=== PATIENT | male | born 1970 | race American Indian/Alaskan Native ===

== ENCOUNTER 2018-06-26 19:58 | Emergency (ER) | payer OTHER ==
[2018-06-26 20:13] VITALS: BP 128/73; PULSE 89; RESP 16; TEMP 98.9; O2SAT 96
[2018-06-26] MEDS ORDERED: Tdap Vaccine 0.5 ml Vial (10-64 yrs) IM ONE ×2 (21:13→22:05)
--- NOTE | 2018-06-26 21:39 | ED PDOC ---
Lower Extremity Pain/Injury Time Seen by Provider: 06/26/18 20:58 Chief Complaint (Nursing): Lower Extremity Problem/Injury Chief Complaint (Provider): Lower Extremity Problem/Injury History Per: Patient History/Exam Limitations: no limitations Onset/Duration Of Symptoms: Hrs (x1-1.5) Current Symptoms Are (Timing): Still Present Additional Complaint(s): Patient is a 47 y/o male with no significant PMHx who presents to the ED for evaluation of a right foot injury an hour to and hour and half prior to arrival. Patient was at work and stepped on a long marleny nail. The nail punctured through his shoe and the bottom of his right foot. His friend pulled the nail out. Patient reports soreness and was brought in by coworkers to avoid walking on his foot. Of note, patient's Tetanus is not up to date. PCP: None Provided Past Medical History Reviewed: Historical Data, Nursing Documentation, Vital Signs Vital Signs: Last Vital Signs Temp 98.9 F 06/26/18 20:12 Pulse 89 06/26/18 20:12 Resp 16 06/26/18 20:12 BP 128/73 06/26/18 20:12 Pulse Ox 96 06/26/18 20:12 - Medical History PMH: No Chronic Diseases - Surgical History Surgical History: No Surg Hx - Family History Family History: States: No Known Family Hx - Immunization History Hx Tetanus Toxoid Vaccination: No - Home Medications Home Medications: Ambulatory Orders Medication Instructions Recorded Ciprofloxacin 500 mg PO BID 7 Days #14 ml 06/26/18 Ibuprofen [Motrin Tab] 600 mg PO Q6 PRN #20 tab 06/26/18 - Allergies Allergies/Adverse Reactions: Allergies Allergy/AdvReac Type Severity Reaction Status Date / Time No Known Allergies Allergy Verified 06/26/18 20:15 Review of Systems ROS Statement: Except As Marked, All Systems Reviewed And Found Negative Musculoskeletal: Positive for: Foot Pain (right; soreness) Physical Exam - Reviewed Nursing Documentation Reviewed: Yes Vital Signs Reviewed: Yes - Physical Exam Comments: GENERAL APPEARANCE: Patient is awake, alert, oriented x 3, in no acute distress. SKIN: Warm, dry; (-) cyanosis. LOWER EXTREMITY: plantar aspect of right foot has small puncture wound, mild tenderness to palpation (-) swelling, (-) erythema. Cap refill less than 2 seconds. DP pulses 2+. (+)FROM CARDIOVASCULAR: (+) distal pulse. NEUROLOGIC: (+) distal sensation. - ECG O2 Sat by Pulse Oximetry: 96 (RA) Pulse Ox Interpretation: Normal Medical Decision Making Medical Decision Making: Time: 2112 Impression: Puncture Wound to Plantar Aspect of Right Foot Plan: Tetanus Motrin 600 mg PO Foot Right 3 Views Routine [Rad] 21:50 xray reviewed by me: no acute fracture, dislocations, no foreign body will start on antibiotics due to puncture wound through shoe i cleaned wound, applied cling wrap, rn applied crow wrap, pt did not want surgical shoe, ambulating with no problems Discussed results, diagnosis, treatment, return precautions and f/u with pt who is understanding, in agreement and stable for dc Scribe Attestation: Documented by Kevan Lan, acting as a scribe for Jamil Johnson PA-C Provider Scribe Attestation: All medical record entries made by the Scribe were at my direction and personally dictated by me. I have reviewed the chart and agree that the record accurately reflects my personal performance of the history, physical exam, medical decision making, and the department course for this patient. I have also personally directed, reviewed, and agree with the discharge instructions and disposition. Disposition - Clinical Impression Clinical Impression: Puncture wound of foot, Puncture wound of skin from metal nail - Patient ED Disposition Is Patient to be Admitted: No Counseled Patient/Family Regarding: Studies Performed, Diagnosis, Need For Followup, Rx Given - Disposition Referrals: Podiatry Clinic [Outside] workers, comp [Other] Disposition: Routine/Home Disposition Time: 22:10 Condition: STABLE Additional Instructions: Take antibiotics as prescribed until finished. Keep area clean, dry and covered. Follow up with your workers comp or podiatry clinic. Thank you for letting us take care of you today. You were treated for foot puncture wound from a nail. The emergency medical care you received today was directed at your acute symptoms. If you were prescribed any medication, please fill it and take as directed. It may take several days for your symptoms to resolve. Return to the Emergency Department if your symptoms worsen, do not improve, or if you have any other problems. Please contact your doctor in 2 days for re-evaluation and follow up / or call one of the physicians/clinics you have been referred to that are listed on the Patient Visit Information form that is included in your discharge packet. Bring any paperwork you were given at discharge with you along with any medications you are taking to your follow up visit. Our treatment cannot replace ongoing medical care by a primary care provider (PCP) outside of the emergency department. Prescriptions: Ciprofloxacin 500 mg PO BID 7 Days #14 ml Ibuprofen [Motrin Tab] 600 mg PO Q6 PRN #20 tab PRN Reason: Pain, Moderate (4-7) Instructions: Foreign Body in Skin Forms: [facility] (Com[place]an), [facility] ED School/Work Excuse Print Language: KYRGYZ - POA Present On Arrival: None
--- NOTE | 2018-06-27 10:55 | RAD ---
Date of service: 06/26/2018 PROCEDURE: Right Foot Radiographs. HISTORY: stepped on nail COMPARISON: None. TECHNIQUE: 3 views obtained. FINDINGS: BONES: Bone alignment and mineralization are normal. There is no acute displaced fracture or bone destruction. There is a well-circumscribed lucency with surrounding sclerosis in the subarticular anterior talus. 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 The remaining joint spaces are preserved. SOFT TISSUES: Normal. OTHER FINDINGS: None. IMPRESSION: No acute displaced fracture or dislocation. Well-circumscribed round lucency with surrounding sclerosis in the subarticular anterior talus may represent a geode given mild degenerative osteoarthrosis at the talonavicular joint.
== END 2018-06-26 22:29 | disposition home or self-care (01) ==
LOC: H.ER 19:58
DX: S91.331A Puncture wound without foreign body, right foot, initial encounter (principal); W45.0XXA Nail entering through skin, initial encounter; Y99.0 Civilian activity done for income or pay